=== PATIENT | male | born 1960 | race Caucasian/White ===

== ENCOUNTER 2017-03-10 16:35 | Emergency (ER) | payer BC ==
[~2017-03-10] VITALS: Ht 200.7 cm; Wt 124.2 kg
[2017-03-10] MEDS ORDERED: PROP120C3 PO (17:17)
[2017-03-10] MEDS ORDERED: OMEP40CA6 PO (17:17)
[2017-03-10 17:29] LABS: BLOOD UREA NITROGEN 27 mg/dL (7-18)
[2017-03-10] MEDS ORDERED: RIVAROXABAN 15 MG TABLET PO ONE (18:30)
[2017-03-10 18:42] VITALS: BP 147/88
== END 2017-03-10 18:55 | disposition home or self-care (01) ==
LOC: ED 18:49
DX: I82.412 Acute embolism and thrombosis of left femoral vein (principal); I82.432 Acute embolism and thrombosis of left popliteal vein
CPT/HCPCS: 36415; 80048; 82040; 85025; 85610; 85730; 99284

== ENCOUNTER → 2017-03-10 | Outpatient (CLI) | payer BC ==
[~2017-03-10] MED LIST: OMEP40CA6 PO; PROP120C3 PO
== END | disposition home or self-care (01) ==
LOC: CFH 15:13
PROVIDERS: ATTEND Family Medicine
DX: I82.432 Acute embolism and thrombosis of left popliteal vein (principal); I82.412 Acute embolism and thrombosis of left femoral vein; I82.4Y2 Acute embolism and thrombosis of unspecified deep veins of left proximal lower extremity
CPT/HCPCS: 93970